=== PATIENT | male | born 1975 | race Caucasian/White ===

== ENCOUNTER → 2018-03-30 | Outpatient (CLI) | payer OTHER | END | disposition home or self-care (01) | LOC: RAD 12:09 | PROVIDERS: ATTEND Family Medicine Adult Medicine | DX: K80.20 Calculus of gallbladder without cholecystitis without obstruction (principal); K40.90 Unilateral inguinal hernia, without obstruction or gangrene, not specified as recurrent | CPT/HCPCS: 74176 ==